=== PATIENT | male | born 1955 | race Caucasian/White ===

== ENCOUNTER 2025-04-14 11:59 | Emergency (ER) | payer MEDICARE, SELFPAY ==
[2025-04-14 12:41] LABS: Hematocrit 37.9 % (42.0-52.0); Hemoglobin 12.3 g/dL (14.0-18.0); MDiff Complete? YES; Mean Corpuscular Hemoglobin 28.0 pg (27.0-31.0); Mean Corpuscular Volume 86.3 fl (78.0-98.0); Platelet Adequacy Comment Appears Adequate; Platelet Count 285 10x3/uL (130-400); Red Blood Cell (RBC) Count 4.39 mill/uL (4.70-6.10); White Blood Cell (WBC) Count 8.4 10x3/uL (4.8-10.8)
[2025-04-14 12:42] LABS: ALT (SGPT) 10 U/L (Less than 45); AST (SGOT) 18 U/L (11-34); Albumin 3.7 g/dL (3.1-4.5); Alkaline Phosphatase 74 U/L (40-110); Anion Gap 16 mmol/L (10-20); BUN (Urea Nitrogen) 22 mg/dL (8.4-25.7); Bilirubin, Total 0.9 mg/dL (0.3-1.2); CK (CPK) 75 U/L (30-200); Calc. Creatinine Clearance 0 mL/min (70-130); Calcium 8.8 mg/dL (7.8-10.44); Carbon Dioxide 22 mmol/L (23-31); Chloride 109 mmol/L (98-107); Globulin 3.1 g/dL (2.4-3.5); Glucose 97 mg/dL (80-115); Potassium 4.2 mmol/L (3.5-5.1); Sodium 143 mmol/L (136-145)
[2025-04-14 12:43] LABS: Troponin I 0.021 ng/mL (< 0.028)
[2025-04-14 12:44] LABS: Acetaminophen Less than 10 mcg/mL (Less than 10); Salicylate Less than 8.0 mg/dL (Less than 8.0)
[2025-04-14 12:49] LABS: Bicarbonate (HCO3v) 29.8 mmol/L (22.0-28.0); CO2 Tension (PvCO2) 54.2 mmHg (42.0-51.0)
[2025-04-14 12:50] LABS: Calcium, Ionized 1.22 mmol/L (1.15-1.33); Chloride 109 mmol/L (98-107); Hemoglobin - Calc 13.0 g/dL (14.0-18.0); Potassium 4.1 mmol/L (3.5-5.1); Sodium 144 mmol/L (138-145); T. Carbon Dioxide 31.5 mmol/L (22.0-28.0); vO2 Saturation-calc 99.3 % (60.0-85.0)
[2025-04-14 13:43] LABS: Cocaine Metabolite Screen Negative (Negative); THC/Cannabinoid Screen PRELIM POSITIVE (Negative); Tricyclic Screen Negative (Negative)
== END 2025-04-14 14:00 | disposition home or self-care (01) ==
LOC: MADERS 11:59
DX: R41.0 Disorientation, unspecified (principal); D64.9 Anemia, unspecified; N28.9 Disorder of kidney and ureter, unspecified; F15.10 Other stimulant abuse, uncomplicated; F12.10 Cannabis abuse, uncomplicated; I10 Essential (primary) hypertension; F17.210 Nicotine dependence, cigarettes, uncomplicated; Z86.73 Personal history of transient ischemic attack (TIA), and cerebral infarction without residual deficits
CPT/HCPCS: 36416; 71045; 80053; 80306; 80307; 82330; 82435; 82550; 82803; 83880; 84132; 84295; 84484; 85014; 85025; 96360; 96361; J7030